=== PATIENT | male | born 1960 | race Caucasian/White ===

== ENCOUNTER 2017-07-08 11:24 | Emergency (ER) | payer OTHER ==
[~2017-07-08] VITALS: Ht 177.8 cm; Wt 116.5 kg
[~2017-07-08 11:24] MED LIST: CIPRO500 MG PO; FLAGYL500 MG PO
[2017-07-08 11:51] LABS: APPEARANCE CLEAR ((CLEAR)); BILIRUBIN NEGATIVE; BLOOD NEGATIVE; COLOR YELLOW ((YELLOW)); GLUCOSE (STRIP) NEGATIVE; KETONES NEGATIVE; LEUKOCYTES NEGATIVE; NITRITE NEGATIVE; PROTEIN (STRIP) NEGATIVE; SPECIFIC GRAVITY 1.023 (1.000-1.030); UCUL ADDED? NO; UROBILINOGEN 0.2 MG/DL (0.2-1.0)
[2017-07-08 12:07] LABS: HEMATOCRIT 42.6 % (38.0-50.0); HEMOGLOBIN 14.1 G/DL (12.5-16.6); MCH 27.9 PG (29.0-34.0); MCHC 33.1 G/DL (30.0-36.0); MCV 84.4 FL (86-99); PLATELET COUNT 236 K/uL (156-360); RED BLOOD COUNT 5.05 M/uL (4.00-5.50); WHITE BLOOD COUNT 9.5 K/uL (4.1-10.2)
[2017-07-08 12:16] LABS: ALBUMIN 4.3 g/dL (3.2-4.8); CHLORIDE 105 mEq/L (99-109); POTASSIUM 4.6 mEq/L (3.7-5.4); SODIUM 141 mEq/L (136-147)
[2017-07-08 12:18] LABS: GLUCOSE 105 mg/dL (70-99)
[2017-07-08 12:19] LABS: TOTAL PROTEIN 7.9 g/dL (6.4-8.3)
[2017-07-08 12:20] LABS: TOTAL BILIRUBIN 0.5 mg/dL (0.0-1.0)
[2017-07-08 12:22] LABS: ALKALINE PHOSPHATASE 92 IU/L (3-129); GFR ESTIMATE (CALCULATED) > 59 mL/min/ (58.99-99999)
[2017-07-08 12:23] LABS: UREA NITROGEN (BUN) 21 mg/dL (9-23)
[2017-07-08 12:24] LABS: AST (GOT) 20 IU/L (2-34)
[2017-07-08 12:25] LABS: ALT (GPT) 31 IU/L (3-49)
[2017-07-08 13:44] LABS: LIPASE 31 U/L (1.0-51.0)
[2017-07-08] MEDS ORDERED: CIPRO500 MG PO (17:47)
[2017-07-08] MEDS ORDERED: FLAGYL500 MG PO (17:47)
[2017-07-08] MEDS ORDERED: ZOFRAN4 MG SL (17:47)
[2017-07-08 18:04] VITALS: BP 126/69
== END 2017-07-08 18:05 | disposition home or self-care (01) ==
LOC: EME 11:24 → RME 11:24
DX: K57.32 Diverticulitis of large intestine without perforation or abscess without bleeding (principal); K76.0 Fatty (change of) liver, not elsewhere classified
CPT/HCPCS: 74177; 80053; 81003; 83690; 85027; 99281; 99285; J2270; J2405; J7030

== ENCOUNTER 2017-11-05 05:07 | Emergency (ER) | payer OTHER ==
[~2017-11-05] VITALS: Ht 177.8 cm; Wt 111.2 kg
[~2017-11-05 05:07] MED LIST changes: +ZOFRAN4 MG SL
[2017-11-05 05:41] LABS: HEMATOCRIT 40.9 % (38.0-50.0); MCH 28.2 PG (29.0-34.0); MCHC 34.2 G/DL (30.0-36.0); MCV 82.3 FL (86-99); PLATELET COUNT 170 K/uL (156-360); RBC DIS.WIDTH-CV 14.2 % (11.8-14.6); RBC DIS.WIDTH-SD 42.1 % (39-53); RED BLOOD COUNT 4.97 M/uL (4.00-5.50); WHITE BLOOD COUNT 10.2 K/uL (4.1-10.2)
[2017-11-05 05:55] LABS: CHLORIDE 106 mEq/L (99-109); POTASSIUM 3.9 mEq/L (3.7-5.4); SODIUM 140 mEq/L (136-147)
[2017-11-05 05:57] LABS: GLUCOSE 101 mg/dL (70-99)
[2017-11-05 06:00] LABS: GFR ESTIMATE (CALCULATED) > 59 mL/min/ (58.99-99999); TROP-I INTERPRETATION NEGATIVE; TROPONIN-I < 0.01 ng/mL (0.0-0.30)
[2017-11-05 06:01] LABS: UREA NITROGEN (BUN) 20 mg/dL (9-23)
[2017-11-05 08:25] LABS: TROP-I INTERPRETATION NEGATIVE; TROPONIN-I < 0.01 ng/mL (0.0-0.30)
[2017-11-05 08:40] VITALS: BP 115/74
== END 2017-11-05 08:41 | disposition home or self-care (01) ==
LOC: EME 05:07
PROVIDERS: Emergency Medicine
DX: K21.9 Gastro-esophageal reflux disease without esophagitis (principal); K44.9 Diaphragmatic hernia without obstruction or gangrene; R07.9 Chest pain, unspecified
CPT/HCPCS: 71046; 80048; 84484; 85027; 93005; 99281; 99285